=== PATIENT | female | born 1995 | race American Indian/Alaskan Native ===

== ENCOUNTER 2018-03-12 02:41 | Emergency (ER) | payer SELFPAY ==
[2018-03-12 04:15] VITALS: BP 125/76
[2018-03-12 04:44] LABS: Basophils % (Auto) 0.4 % (0.0-1.8); Eosinophils # (Auto) 0.2 K/mm3 (0.0-0.4); Hematocrit 39.1 % (30.3-42.9); Hemoglobin 13.6 gm/dl (10.1-14.3); Lymphocytes # (Auto) 2.6 K/mm3 (1.2-5.4); Lymphocytes % (Auto) 28.9 % (13.4-35.0); Mean Corpuscular HGB Conc 35 % (30-34); Mean Corpuscular Hemoglobin 28 pg (28-32); Mean Corpuscular Volume 80 fl (79-97); Monocytes # (Auto) 0.9 K/mm3 (0.0-0.8); Monocytes % (Auto) 10.5 % (0.0-7.3); Platelet Count 275 K/mm3 (140-440); Red Blood Count 4.88 M/mm3 (3.65-5.03); Red Cell Distribution Width 13.9 % (13.2-15.2)
[2018-03-12 05:02] LABS: BUN/Creatinine Ratio 23; Blood Urea Nitrogen 16 mg/dL (7-17); Calcium 9.8 mg/dL (8.4-10.2); Hemolysis Index 3
== END 2018-03-12 09:16 ==
LOC: ED 02:41
DX: R42 Dizziness and giddiness (principal); Z53.21 Procedure and treatment not carried out due to patient leaving prior to being seen by health care provider
CPT/HCPCS: 36415; 80048; 84703; 85025; 93005; 93010

== ENCOUNTER 2018-04-08 12:42 | Emergency (ER) | payer SELFPAY ==
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
[2018-04-08 17:13] LABS: HCG Qualitative,Urine Negative (Negative)
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
[2018-04-08] MEDS ORDERED: ULTRAM ONE (19:37)
[2018-04-08] MEDS ORDERED: ULTRAM PO ONE (19:40)
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
[2018-04-08] MEDS ORDERED: FLEXERIL PO ONE (20:05)
[2018-04-08 21:32] VITALS: BP 130/80
== END 2018-04-08 22:00 | disposition home or self-care (01) ==
LOC: ED 12:42
DX: S09.90XA Unspecified injury of head, initial encounter (principal); M85.2 Hyperostosis of skull; G44.319 Acute post-traumatic headache, not intractable; M54.5 Low back pain; Z88.1 Allergy status to other antibiotic agents; V49.49XA Driver injured in collision with other motor vehicles in traffic accident, initial encounter; Y93.89 Activity, other specified; Y92.89 Other specified places as the place of occurrence of the external cause; Y99.8 Other external cause status
CPT/HCPCS: 70450; 72125; 72131; 81025

== ENCOUNTER 2021-09-07 18:46 | Outpatient (CLI) | payer SELFPAY ==
[2021-09-07 20:59] VITALS: BP 119/73
[2021-09-07] MEDS ORDERED: LACTATED RINGERS 1,000 ML IV ONE (21:12)
[2021-09-07 22:16] LABS: Bilirubin,Urine NEG (Negative); Blood,Urine NEG (Negative); Color,Urine Amber (Yellow); Mucus,Urine 3+ /HPF
== END 2021-09-08 00:35 | disposition home or self-care (01) ==
LOC: TRG 18:46 → APU 18:52 → TRG 09-08 00:35
PROVIDERS: ATTEND Obstetrics & Gynecology
DX: O26.892 Other specified pregnancy related conditions, second trimester (principal); R10.2 Pelvic and perineal pain; Z3A.23 23 weeks gestation of pregnancy; Z87.891 Personal history of nicotine dependence
CPT/HCPCS: 59025; 81001; 96360; J7120

== ENCOUNTER 2021-09-22 23:10 | Outpatient (CLI) | payer SELFPAY ==
[2021-09-23 00:01] VITALS: BP 113/76
[2021-09-23] MEDS ORDERED: LACTATED RINGERS 1,000 ML IV ONE (00:12)
[2021-09-23 01:08] LABS: Bilirubin,Urine NEG (Negative); Blood,Urine LG (Negative); Color,Urine Yellow (Yellow); Mucus,Urine FEW /HPF
[2021-09-23 01:11] LABS: RBC,Urine > 182.0 /HPF (0.0-6.0)
[2021-09-23 01:12] LABS: Amphetamine Screen,Urine PRESUMPTIVE NEGATIVE; Benzodiazepines Screen,Urine PRESUMPTIVE NEGATIVE; Cannabinoid Screen,Urine PRESUMPTIVE NEGATIVE; Cocaine Screen,Urine PRESUMPTIVE NEGATIVE; Methadone Screen,Urine PRESUMPTIVE NEGATIVE; Opiate Screen,Urine PRESUMPTIVE NEGATIVE
[2021-09-23] MEDS ORDERED: LIDOCAINE-MPF (1%) 10 MG/1 ML VIAL 5 ML INFILTRATI ONE (01:30)
[2021-09-23 01:46] LABS: Bilirubin,Urine NEG (Negative); Blood,Urine LG (Negative); Color,Urine Yellow (Yellow); Mucus,Urine 1+ /HPF; Urobilinogen,Urine < 2.0 mg/dL (<2.0)
[2021-09-23 01:49] LABS: RBC,Urine > 182.0 /HPF (0.0-6.0)
--- NOTE | 2021-09-23 03:22 | Ultrasound Report ---
ULTRASOUND RENAL INDICATION / CLINICAL INFORMATION: hematuria. Patient is . COMPARISON: None available. FINDINGS: RIGHT KIDNEY: Length = 12.4 cm. - Echogenicity: Normal. - Cortical Thickness: Normal. - Hydronephrosis: None. - Cyst / Mass: None. - Stones: None seen. LEFT KIDNEY: Length = 12.2 cm. - Echogenicity: Normal. - Cortical Thickness: Normal. - Hydronephrosis: None. - Cyst / Mass: 1.9 cm parapelvic cyst. - Stones: None seen. URINARY BLADDER: No significant abnormality. FREE FLUID: None. ADDITIONAL FINDINGS: None. IMPRESSION: 1. No significant sonographic abnormality of the kidneys. Signer Name: Brannon Hagan MD Signed: 09/23/2021 3:18 AM Workstation Name: [email or web address]
--- NOTE | 2021-09-23 03:26 | Ultrasound Report ---
ULTRASOUND OBSTETRIC LIMITED INDICATION / CLINICAL INFORMATION: rule out abruption. Pain in . Clinical Gestational Age (GA) in weeks, days: 26, 0 TECHNIQUE: Transabdominal. COMPARISON: None available. FINDINGS: Single intrauterine . HEART RATE (beats per minute): 145 PRESENTATION: Cephalic. ADDITIONAL FINDINGS: Placenta is anterior and grade 1. No placental abruption. IMPRESSION: 1. No sonographic abnormality. No placental abruption. Signer Name: Brannon Hagan MD Signed: 09/23/2021 3:21 AM Workstation Name: [email or web address]
== END 2021-09-23 03:55 | disposition home or self-care (01) ==
LOC: TRG 23:10 → APU 23:17 → TRG 09-23 03:55
PROVIDERS: ATTEND Obstetrics & Gynecology
DX: O26.892 Other specified pregnancy related conditions, second trimester (principal); R31.9 Hematuria, unspecified; Z3A.26 26 weeks gestation of pregnancy
CPT/HCPCS: 36415; 59025; 76770; 76815; 80307; 81001; 84112; 87086; 96360; 96372; J0696; J7120

== ENCOUNTER 2021-12-17 19:03 | Inpatient (IN) | payer MEDICAID, OTHER ==
[2021-12-17] MEDS ORDERED: LACTATED RINGERS 1,000 ML ONE (19:58)
[2021-12-17] MEDS ORDERED: fentaNYL 100 MCG/2 ML INJ IV PRN (21:17)
[2021-12-17] MEDS ORDERED: CARBOPROST TROMETHAMINE 250 MCG/1 ML INJ IM PRN (21:17)
[2021-12-17] MEDS ORDERED: MINERAL OIL 30 ML ORAL LIQD PO PRN (21:17)
[2021-12-17] MEDS ORDERED: LOPERAMIDE 2 MG CAP PO PRN (21:17)
[2021-12-17] MEDS ORDERED: BUTORPHANOL 2 MG/1 ML INJ IV PRN (21:17)
[2021-12-17] MEDS ORDERED: ACETAMINOPHEN 325 MG TAB PO PRN (21:17)
[2021-12-17] MEDS ORDERED: TERBUTALINE 1 MG/1 ML INJ SUB-Q PRN (21:17)
[2021-12-17] MEDS ORDERED: ePHEDrine SULFATE 50 MG/1 ML INJ IV PRN ×2 (21:17→22:44)
[2021-12-17] MEDS ORDERED: LACTATED RINGERS 1,000 ML IV SCH (21:30)
[2021-12-17 21:59] LABS: Hematocrit 35.3 % (30.3-42.9); Hemoglobin 11.6 gm/dl (10.1-14.3); Mean Corpuscular HGB Conc 33 % (30-34); Mean Corpuscular Volume 80 fl (79-97); Platelet Count 183 K/mm3 (140-440); Red Cell Distribution Width 15.4 % (13.2-15.2)
[2021-12-17] MEDS ORDERED: miSOPROStol 25 MCG TAB PO SCH (22:00)
[2021-12-17] MEDS ORDERED: OXYTOCIN DRIP 30 UNITS/500 ML BAG IV SCH (22:00)
[2021-12-17 22:10] LABS: Alanine Aminotransferase 12 units/L (7-56); Albumin 3.5 g/dL (3.9-5); Blood Urea Nitrogen 4 mg/dL (7-17); Calcium 9.7 mg/dL (8.4-10.2); Hemolysis Index 172; Uric Acid 5.4 mg/dL (3.5-7.6)
[2021-12-17] MEDS ORDERED: LIDOCAINE (2%) 20 MG/1 ML VIAL 20 ML MDV INFILTRATI ONE (22:17)
[2021-12-17 22:33] LABS: BUN/Creatinine Ratio 8
[2021-12-17] MEDS ORDERED: ONDANSETRON 4 MG/2 ML INJ ONE (22:34)
[2021-12-17] MEDS ORDERED: NALOXONE 2 MG/2 ML INJ IV PRN (22:44)
--- NOTE | 2021-12-17 22:45 | Ultrasound Report ---
ULTRASOUND OBSTETRIC LIMITED INDICATION / CLINICAL INFORMATION: Elevated BP. Clinical Gestational Age (GA) in weeks, days: 38 weeks 1 day TECHNIQUE: Transabdominal. COMPARISON: None available. FINDINGS: NUMBER: Single PRESENTATION: cephalic . AMNIOTIC FLUID VOLUME: decreased AMNIOTIC FLUID INDEX (WAYNE) in cm (if measured): 4.2 MEASUREMENTS: - Biparietal Diameter = 10.2 cm = 42 weeks, 0 days - Head Circumference = 30.8 cm = 34 weeks, 3 days - Abdominal Circumference = 33.1 cm = 37 weeks, 0 days - Femur Length = 6.55 cm = 33 weeks, 5 days - Estimated Weight (in grams, if calculated): 2944 g - Heart Rate (beats per minute): 131 ADDITIONAL FINDINGS: None. AVERAGE ULTRASOUND AGE (AUA) in weeks, days = 36 weeks 1 day IMPRESSION: 1. Single intrauterine with AUA of 36 weeks, 1 days 2. Amniotic fluid index is 4.2 cm Signer Name: Nupur Harden MD Signed: 12/17/2021 10:41 PM Workstation Name: [id number]
[2021-12-17] MEDS ORDERED: fentaNYL-BUPIV 2 MCG/ML-0.125% 200 MCG/100 ML BAG EPIDURAL SCH (23:00)
--- NOTE | 2021-12-17 23:06 | Anesthesia Consultation ---
Anesthesia Consult and Med Hx Date of service: 12/17/21 - Airway Anesthetic Teeth Evaluation: Good ROM Head & Neck: Adequate Mental/Hyoid Distance: Adequate Mallampati Class: Class II Intubation Access Assessment: Probably Good - Pulmonary Exam CTA: Yes - Cardiac Exam Cardiac Exam: RRR - Pre-Operative Health Status ASA Pre-Surgery Classification: ASA3 Proposed Anesthetic Plan: Epidural - Pulmonary Hx Smoking: Yes - Other Systems Hx Alcohol Use: (not since ) Hx Obesity: Yes
--- NOTE | 2021-12-17 23:07 | Progress Note ---
Labor Epidural - Labor Epidural Start Time: 22:52 Stop Time: 22:57 Performed by:: ALFRED LOZADA Procedure: Patient is requesting epidural for labor pain. H&P, and labs reviewed. Procedure explained, questions answered, consent obtained. Patient in sitting position with blood pressure cuff and pulse ox on and working. Timeout performed immediately before start of procedure. Sterile Duraprep prep/drape. 3 mL 1% lidocaine skin wheal at L[3]-L[4]. 17-gauge tuohy epidural needle advanced to [id number] with saline at [7] cm. 25-gauge spinal needle advanced until clear, free-flowing CSF. Intrathecal dexmedetomidine [5] mcg administered and needle removed. Epidural catheter advanced to [12] cm, negative aspiration for blood and csf, negative test dose 3 ml 1.5% lidocaine with epinephrine. Sterile sponge and tegaderm applied, followed by tape reinforcement. Patient tolerated procedure well.
[2021-12-18 00:45] LABS: Bilirubin,Urine NEG (Negative); Blood,Urine NEG (Negative); Color,Urine Yellow (Yellow); Mucus,Urine 1+ /HPF; Protein,Urine <15 mg/dL mg/dL (Negative); Urobilinogen,Urine < 2.0 mg/dL (<2.0)
[2021-12-18 01:09] LABS: Amphetamine Screen,Urine PRESUMPTIVE NEGATIVE; Benzodiazepines Screen,Urine PRESUMPTIVE NEGATIVE; Cannabinoid Screen,Urine PRESUMPTIVE NEGATIVE; Cocaine Screen,Urine PRESUMPTIVE NEGATIVE; Methadone Screen,Urine PRESUMPTIVE NEGATIVE; Opiate Screen,Urine PRESUMPTIVE NEGATIVE
[2021-12-18 01:26] LABS: Creatinine,Urine 149.3 mg/dL (0.1-20.0)
[2021-12-18] MEDS ORDERED: LIDOCAINE (2%) 20 MG/1 ML VIAL 20 ML MDV INFILTRATI ONE (04:29)
[2021-12-18] MEDS ORDERED: MAGNESIUM HYDROXIDE (MOM) ORAL LIQD UDC PO PRN (05:23)
[2021-12-18] MEDS ORDERED: ONDANSETRON 4 MG/2 ML INJ IV PRN (05:23)
[2021-12-18] MEDS ORDERED: LANOLIN/ZINC/DIMETHICONE (LANSINOH) 7 GM TP PRN (05:23)
[2021-12-18] MEDS ORDERED: HYDROCORTISONE 25 MG RECTAL SUPP PR PRN (05:23)
[2021-12-18] MEDS ORDERED: BENZOCAINE/MENTHOL 20/0.5% TOP SPRAY 56 GM TP PRN (05:23)
[2021-12-18] MEDS ORDERED: ACETAMINOPHEN 325 MG TAB PO PRN (05:23)
[2021-12-18] MEDS ORDERED: diphenhydrAMINE 25 MG CAP PO PRN (05:23)
[2021-12-18] MEDS ORDERED: PROMETHAZINE 25 MG TAB PO PRN (05:23)
[2021-12-18] MEDS ORDERED: WITCH HAZEL/ GLYCERIN PAD TP PRN (05:23)
--- NOTE | 2021-12-18 05:29 | History and Physical Report ---
History of Present Illness Date of examination: 12/17/21 Chief complaint: Leaking of fluid History of present illness: 26 y/o at 38-1/7 weeks presents to OBT reporting LOF. No VB. Good FM. Upon arrival, there was gross ROM. CTX started after LOF, but those CTX were not regular and painful. In OBT, SVE was 3/80%/-3. Past History Past Medical History: no pertinent history Past Surgical History: no surgical history Family/Genetic History: none Social history: no significant social history - Obstetrical History Expected Date of Delivery: 12/30/21 Actual Gestation: 38 Week(s) 2 Day(s) : 1 Para: 0 Medications and Allergies Allergies Allergy/AdvReac Type Severity Reaction Status Date / Time Sulfa (Sulfonamide Allergy Rash Verified 04/08/18 12:48 Antibiotics) Home Medications Medication Instructions Recorded Confirmed Last Taken Type Cephalexin [Keflex] 500 mg PO QID #40 capsule 09/15/14 Unknown Rx Sulfamethoxazole/Trimethoprim 1 each PO BID #20 tablet 09/15/14 Unknown Rx [Bactrim Ds] traMADoL [Ultram 50 MG tab] 50 mg PO Q6HR PRN #20 tablet 09/15/14 Unknown Rx Cyclobenzaprine [Flexeril] 10 mg PO TID PRN #15 tablet 04/08/18 Unknown Rx Ibuprofen [Motrin] 600 mg PO Q8H PRN #15 tablet 04/08/18 Unknown Rx Active Meds: Active Medications Acetaminophen (Acetaminophen 325 Mg Tab) 650 mg PO Q4H PRN PRN Reason: Pain, Mild (1-3) Butorphanol Tartrate (Butorphanol 2 Mg/1 Ml Inj) 1 mg IV Q2H PRN PRN Reason: Pain, Moderate(4-6) LABOR PAIN Carboprost Tromethamine (Carboprost Tromethamine 250 Mcg/1 Ml Inj) 250 mcg IM ONCE PRN PRN Reason: Uterine Bleeding Ephedrine Sulfate (Ephedrine Sulfate 50 Mg/1 Ml Inj) 10 mg IV Q2M PRN PRN Reason: Hypotension Fentanyl (Fentanyl 100 Mcg/2 Ml Inj) 100 mcg IV Q2H PRN PRN Reason: Pain,Severe (7-10) LABOR PAIN Lactated Ringer's (Lactated Ringers) 1,000 mls @ 125 mls/hr IV DIRECT JAELYN Last Admin: 02/03/22 22:55 Dose: 125 mls/hr Oxytocin/Sodium Chloride (Pitocin/Ns 30 Unit/500ml) 30 units in 500 mls @ 40 mls/hr IV TITR [facility]; Protocol Last Admin: 12/18/21 05:23 Dose: 40 ml/hr, 40 mls/hr Fentanyl/Bupivacaine/Sodium Chlor (Fentanyl-Bupiv 2 Mcg/Ml-0.125%) 200 mcg in 100 mls @ 12 mls/hr EPIDURAL TITR [facility]; Protocol Last Admin: 12/17/21 23:15 Dose: 12 mls/hr Loperamide HCl (Loperamide 2 Mg Cap) 2 mg PO ONCE PRN PRN Reason: give with Hemabate Mineral Oil (Mineral Oil 30 Ml Oral Liqd) 30 ml PO QHS PRN PRN Reason: Constipation Last Admin: 12/18/21 05:22 Dose: 30 ml Misoprostol (Misoprostol 25 Mcg Tab) 25 mcg PO Q4H [facility] Stop: 12/18/21 10:01 Last Admin: 12/17/21 23:15 Dose: 25 mcg Naloxone HCl (Naloxone 2 Mg/2 Ml Inj) 0.2 mg IV Q5M PRN PRN Reason: Respiratory sedation Terbutaline Sulfate (Terbutaline 1 Mg/1 Ml Inj) 0.25 mg SUB-Q ONCE PRN PRN Reason: Hyperstimulation/Hypertonicity Review of Systems All systems: negative - Vital Signs Vital signs: Vital Signs Pulse Pulse Ox 111 H 99 12/17/21 19:36 12/17/21 19:36 Temp Pulse Resp BP Pulse Ox 99 F 105 H 18 130/67 100 12/18/21 05:24 12/18/21 05:24 12/18/21 05:24 12/18/21 05:22 12/18/21 05:24 - Physical Exam Breasts: Positive: normal Cardiovascular: Regular rate Lungs: Positive: Normal air movement Abdomen: Positive: normal appearance Genitourinary (Female): Positive: normal external genitalia Vulva: both: normal Vagina: Positive: discharge Uterus: Positive: normal size Adnexa: both: normal Extremities: Positive: normal Deep Tendon Reflex Grade: Normal +2 - Obstetrical FHR: category 1 Uterine Contraction Monitor Mode: External Cervical Dilatation: 3 Cervical Effacement Percentage: 80 station: -3 Uterine Contraction Pattern: Irregular Results Result Diagrams: 12/17/21 21:17 12/17/21 21:38 Abnormal lab results 12/17/21 12/17/21 12/17/21 Range/Units 21:17 21:30 21:38 MCH 26 L (28-32) pg RDW 15.4 H (13.2-15.2) % Carbon Dioxide 20 L (22-30) mmol/L BUN 4 L (7-17) mg/dL Creatinine 0.5 L (0.6-1.2) mg/dL Lactate Dehydrogenase 326 H (91-180) units/L Albumin 3.5 L (3.9-5) g/dL Urine Creatinine (0.1-20.0) mg/dL Urine Total Protein (5-11.8) mg/dL Membranes Rupture Positive A (Negative) 12/18/21 Range/Units 00:24 MCH (28-32) pg RDW (13.2-15.2) % Carbon Dioxide (22-30) mmol/L BUN (7-17) mg/dL Creatinine (0.6-1.2) mg/dL Lactate Dehydrogenase (91-180) units/L Albumin (3.9-5) g/dL Urine Creatinine 149.3 H (0.1-20.0) mg/dL Urine Total Protein 22 H (5-11.8) mg/dL Membranes Rupture (Negative) All other labs normal. CT scan - abdomen: report reviewed (EFW= 2944 g (23rd %-ile)) Assessment and Plan - Patient Problems (1) 38 weeks gestation of Current Visit: Yes Status: Acute Plan to address problem: care at [place]. Abnormal 1 hour GTT. Normal 3 hour GTT. She did not get a GBS test. (2) Full-term PROM with onset of labor within 24 hours of rupture Current Visit: Yes Status: Acute Plan to address problem: LOF started before CTX. ROM Plus is (+) and there is gross ROM. Plan is IOL. (3) Encounter for induction of labor Current Visit: Yes Status: Acute Plan to address problem: IOL with Cytotec. (4) Elevated blood pressure affecting in third trimester, antepartum Current Visit: Yes Status: Acute Plan to address problem: The patient had 1 BP >140/90 in OBT. No further elevated BP's. No CATHERINE, diplopia, RUQ pain, or scotomata. Urine Protein to Creatinine Ratio (UPCR)= 0.14 Estimated 24 hour urine protein= 142 mg I do not believe that this patient has gHTN pr pre-eclampsia. Continue to monitor BP's during hospital course. (5) GBS screening not performed Current Visit: Yes Status: Acute Plan to address problem: GBS culture not performed at [place]. Treat with PCN if there are any risk factors for GBS per CDC MMWR 2010. No risk factors at this time.
--- NOTE | 2021-12-18 05:31 | Procedure Note ---
OB Delivery Note - Delivery Date of Delivery: 12/18/21 Surgeon: LUIS M MOMIN Estimated blood loss: 300cc - Vaginal Delivery position: OA Intrapartum events: other(please specify) (Term PROM) Delivery induction: misoprostol Delivery monitor: external FHT, external uterine Route of delivery: Delivery placenta: spontaneous Delivery cord: 3 umbilical vessels Episiotomy: none Delivery laceration: other ((R) jan-urethral) Delivery repair: vicryl Anesthesia: epidural - A at 1 minute: 8 at 5 minutes: 9 Gender: Male
[2021-12-18] MEDS: IBUPROFEN 600 MG TAB PO SCH ×3 (05:52→18:48)
[2021-12-18 06:31] LABS: Hemoglobin 10.9 gm/dl (10.1-14.3); Mean Corpuscular HGB Conc 33 % (30-34); Mean Corpuscular Volume 81 fl (79-97); Platelet Count 170 K/mm3 (140-440); Red Blood Count 4.08 M/mm3 (3.65-5.03); Red Cell Distribution Width 15.5 % (13.2-15.2)
--- NOTE | 2021-12-18 07:59 | Post Anesthesia Evaluation ---
- Post Anesthesia Evaluation Patient Participated: Yes Airway Patent: Yes Stable Respiratory Function: Yes Nausea/Vomiting: No Temp > 96.8F: Yes Pain Manageable: Yes Adequeate Hydration: Yes Anesthesia Complications: No Block Receding Appropriately: Yes
[2021-12-18] MEDS: DOCUSATE SODIUM 100 MG CAP PO SCH ×2 (11:16→22:42)
[2021-12-18] MEDS: HYDROcodone/ACETAMINOPHEN 5-325 MG TAB PO PRN ×2 (11:16→20:56)
[2021-12-18 12:24] LABS: Hepatitis C Virus Antibody Non-Reactive (NonReactive)
[2021-12-18 19:33] LABS: Hematocrit 33.7 % (30.3-42.9); Hemoglobin 10.6 gm/dl (10.1-14.3)
--- NOTE | 2021-12-19 00:40 | Progress Note ---
Assessment and Plan Continue routine care Stable DC home tomorrow Stu Liu MD Subjective - Subjective Date of service: 12/19/21 Patient reports: appetite normal, voiding normally, pain well controlled, ambulating normally [place]: doing well Objective - Vital Signs Latest vital signs: Vital Signs Temp Pulse Resp BP Pulse Ox Pulse Ox 12/18/21 21:00 98 12/18/21 20:56 18 12/18/21 15:47 98.5 F 85 20 113/70 98 12/18/21 15:06 102 H 100 12/18/21 15:01 103 H 100 12/18/21 14:56 102 H 100 12/18/21 14:51 97 H 100 12/18/21 09:50 98 12/18/21 07:57 107 H 99 12/18/21 07:53 98 H 119/66 12/18/21 07:52 98 H 100 12/18/21 07:47 104 H 99 12/18/21 07:42 103 H 98 12/18/21 07:37 103 H 99 12/18/21 07:32 103 H 99 12/18/21 07:27 101 H 99 12/18/21 07:23 100 H 122/71 12/18/21 07:22 99 H 99 12/18/21 07:17 104 H 99 12/18/21 07:12 100 H 99 12/18/21 07:07 101 H 99 12/18/21 07:02 97 H 100 12/18/21 06:57 109 H 99 12/18/21 06:52 106 H 128/81 100 12/18/21 06:47 109 H 99 12/18/21 06:42 104 H 100 12/18/21 06:37 109 H 100 12/18/21 06:32 107 H 100 12/18/21 06:19 95 H 100 12/18/21 06:14 97 H 99 12/18/21 06:09 99 H 100 12/18/21 06:04 101 H 99 12/18/21 05:59 106 H 99 12/18/21 05:54 102 H 99 12/18/21 05:53 99 H 136/77 12/18/21 05:49 104 H 99 12/18/21 05:44 98 H 99 12/18/21 05:39 109 H 99 12/18/21 05:34 107 H 100 02/04/22 05:29 107 H 100 12/18/21 05:24 99 F 105 H 18 100 12/18/21 05:22 104 H 130/67 12/18/21 05:19 115 H 97 12/18/21 05:14 109 H 100 12/18/21 05:09 107 H 98 12/18/21 05:04 102 H 100 12/18/21 04:59 114 H 99 12/18/21 04:54 109 H 100 12/18/21 04:49 100 H 99 12/18/21 04:44 98 H 100 12/18/21 04:39 105 H 100 12/18/21 04:34 100 H 100 12/18/21 04:29 101 H 99 12/18/21 04:24 94 H 100 12/18/21 04:19 93 H 99 12/18/21 04:14 102 H 100 12/18/21 04:09 89 99 12/18/21 04:04 103 H 100 12/18/21 03:59 109 H 99 12/18/21 03:54 101 H 99 12/18/21 03:49 102 H 100 12/18/21 03:44 104 H 130/63 100 12/18/21 03:39 96 H 99 12/18/21 03:34 94 H 99 12/18/21 03:29 103 H 100 12/18/21 03:24 103 H 100 12/18/21 03:19 95 H 100 12/18/21 03:14 99 H 100 12/18/21 03:09 102 H 100 12/18/21 03:04 90 99 12/18/21 02:59 95 H 99 12/18/21 02:54 91 H 100 12/18/21 02:49 99 H 99 12/18/21 02:44 96 H 132/79 99 12/18/21 02:39 100 H 100 12/18/21 02:34 111 H 100 12/18/21 02:29 91 H 100 12/18/21 02:24 90 100 12/18/21 02:19 95 H 99 12/18/21 02:14 99 H 98 12/18/21 02:09 90 98 12/18/21 02:04 91 H 98 12/18/21 01:59 93 H 99 12/18/21 01:54 90 99 12/18/21 01:49 89 98 12/18/21 01:45 87 116/65 12/18/21 01:44 85 100 12/18/21 01:39 90 98 12/18/21 01:34 90 98 12/18/21 01:29 90 99 12/18/21 01:24 81 99 12/18/21 01:23 86 106/66 12/18/21 01:19 83 99 12/18/21 01:14 80 100 12/18/21 01:09 81 99 12/18/21 01:04 76 99 12/18/21 01:03 78 118/76 12/18/21 00:59 75 99 12/18/21 00:54 78 100 12/18/21 00:49 78 99 12/18/21 00:44 77 122/75 99 - Exam Breasts: Present: deferred Cardiovascular: Present: Regular rate Lungs: Present: Clear to auscultation Abdomen: Present: normal appearance, soft, normal bowel sounds Uterus: Present: fundal height below umbilicus Extremities: Present: normal Deep Tendon Reflex Grade: Normal +2 - Labs Labs: Abnormal lab results 12/18/21 12/18/21 Range/Units 00:24 06:13 WBC 13.2 H (4.5-11.0) K/mm3 MCH 27 L (28-32) pg RDW 15.5 H (13.2-15.2) % Urine Creatinine 149.3 H (0.1-20.0) mg/dL Urine Total Protein 22 H (5-11.8) mg/dL
--- NOTE | 2021-12-19 00:41 | Discharge Summary ---
Providers - Providers Date of Admission: 12/18/21 09:12 Date of discharge: 12/20/21 Attending physician: BERE FONTANA Primary care physician: [facility] Hospitalization Discharge diagnosis: IUP at term delivered Condition at discharge: Stable Disposition: 01 HOME / SELF CARE / HOMELESS Plan - Provider Discharge Summary Activity: no sex for 6 weeks Diet: routine Instructions: routine Additional instructions: [] Smoking cessation referral if applicable(refer to patient education folder for contact #) [] Refer to [facility]'s [facility] Booklet Call your doctor immediately for: * Fever > 100.5 * Heavy vaginal bleeding ( >1 pad per hour) * Severe persistent headache * Shortness of breath * Reddened, hot, painful area to leg or breast * Drainage or odor from incision. * Keep incision clean and dry at all times and follow doctor's instructions regarding bathing/showering - Follow up plan Follow up: PRIMARY CARE, [Primary Care Provider] - 14 Days
[2021-12-19] MEDS: HYDROcodone/ACETAMINOPHEN 5-325 MG TAB PO PRN (03:24)
[2021-12-19] MEDS: IBUPROFEN 600 MG TAB PO SCH ×2 (09:17→16:45)
[2021-12-19] MEDS: DOCUSATE SODIUM 100 MG CAP PO SCH (09:18)
[2021-12-19] MEDS: FERROUS SULFATE 325 MG TAB PO SCH (09:18)
[2021-12-20] MEDS: IBUPROFEN 600 MG TAB PO SCH ×2 (00:22→05:12)
[2021-12-20] MEDS: DOCUSATE SODIUM 100 MG CAP PO SCH ×2 (01:33→10:13)
[2021-12-20] MEDS: FERROUS SULFATE 325 MG TAB PO SCH (10:13)
[2021-12-20] MEDS: HYDROcodone/ACETAMINOPHEN 5-325 MG TAB PO PRN (10:17)
[2021-12-20 12:17] VITALS: BP 135/93
--- NOTE | 2021-12-20 14:15 | Event Note ---
Date: 12/20/21 Discharge was held earlier today due to elevated blood pressure x2. Labs ordered. Instructed patient's nurse to recheck blood pressure. While awaiting labs to be drawn, patient's nurse (Eva) informed me that patient signed out AMA and refused the labs and the repeat blood pressure and that patient states she will follow up at [facility] office tomorrow for a BP check. Warning signs discussed with patient. Will notify Dr. Liu re: this.
== END 2021-12-20 13:55 | disposition left against medical advice (07) | DRG 775 ==
LOC: TRG 19:03 → APU 19:04 → LD 21:39 → UNDOADMIN 12-18 05:23 → LD 12-18 05:23 → TRG 12-18 05:23 → OB 12-18 09:12
PROVIDERS: ADMIT Obstetrics & Gynecology; ATTEND Obstetrics & Gynecology
PROC: 10E0XZZ Delivery of Products of Conception, External Approach (ICD-10-PCS; principal; 2021-12-18)
PROC: 3E0R3BZ Introduction of Anesthetic Agent into Spinal Canal, Percutaneous Approach (ICD-10-PCS; 2021-12-18)
PROC: 00HU33Z Insertion of Infusion Device into Spinal Canal, Percutaneous Approach (ICD-10-PCS; 2021-12-18)
PROC: 3E0P7VZ Introduction of Hormone into Female Reproductive, Via Natural or Artificial Opening (ICD-10-PCS; 2021-12-18)
PROC: 0UQMXZZ Repair Vulva, External Approach (ICD-10-PCS; 2021-12-18)
DX: O42.02 Full-term premature rupture of membranes, onset of labor within 24 hours of rupture (principal); Z3A.38 38 weeks gestation of pregnancy; Z37.0 Single live birth; Z20.822 Contact with and (suspected) exposure to COVID-19; Z53.29 Procedure and treatment not carried out because of patient's decision for other reasons; O71.82 Other specified trauma to perineum and vulva; Z88.2 Allergy status to sulfonamides
CPT/HCPCS: 36415; 76816; 80053; 80307; 81001; 82570; 83036; 83615; 84112; 84156; 84550; 85014; 85018; 85027; 86592; 86706; 86762; 86803; 86850; 86900; 86901; 87806; G0378; J3490; J2405; J2590; J7120; U0003